=== PATIENT | male | born 1960 | race Caucasian/White ===

== ENCOUNTER 2024-09-15 11:10 | Emergency (ER) | payer MEDICARE, SELFPAY ==
[2024-09-15] VITALS (19 sets, daily range): BP systolic 166; BP diastolic 94; PULSE 59–86; RESP 16; TEMP 36.8; O2SAT 95
--- NOTE | 2024-09-15 11:15 | RT.EKG_ITS ---
APPROVED REPORT Exam: Resting ECG Reason for Exam: Chest Palpatations Patient Location: E HR:79 bpm ECG Measurements Heart Rate 79 AXIS TN 140 P 58 QRSd 98 QRS 74 QT 387 T 57 QTc 444 Conclusion Sinus rhythm...normal P axis, V-rate 60- 99 Probable left atrial enlargement...P >50mS, <-0.10mV V1
--- NOTE | 2024-09-15 11:41 | ED.GENADUL_ITS ---
Discharge Plan Disposition Patient Disposition: Home Condition: Stable Discharge Details Clinical Impression: Chest pain Primary Care Provider: Letty Howard ED Provider: Kody Becerra Discharge Instructions Additional Instructions: Your lab work did not show any concerning findings at this time. I placed you on our follow-up list to try and get established with a primary care provider soon as possible. You should receive a phone call within appointment. If you feel more ill or have new symptoms such as persistent vomiting return to the emergency department for reevaluation. HPI General Mode of arrival: ambulatory . Date/Time Provider Initiated Documentation: 09/15/24 11:31 . Limitations to Documentation: no limitations . Information obtained by: patient . History of Present Illness 63 year old M presents to the emergency department with the chief complaint of anxiety, chest discomfort, described as moderate, Quality is described as aching, and is localized to the chest. Patient reports no radiation. Patient started e xperiencing this day(s) (2) and it has been constant. No relieving factors improve symptom(s), No exacerbating factors reported . Patient notes chest pain; denies fever/chills, nausea/vomiting and shortness of breath. Patient did receive the following treatments prior to arrival, none Related Data Allergies Allergy/AdvReac Type Severity Reaction Status Date / Time iodine Allergy Severe vomiting Verified 09/15/24 11:25 shellfish derived AdvReac Severe Skin Rash Verified 09/15/24 11:27 General Stated Complaint: GenMedical YUE: 3 Review of Systems All systems reviewed & are unremarkable except as noted in HPI and below Constitutional Constitutional: Denies chills, Denies fever(s) and Denies weakness Cardiovascular Cardiovascular: Reports chest pain and Denies dyspnea Respiratory Respiratory: Denies cough and Denies dyspnea Gastrointestinal Gastrointestinal: Denies abdominal pain, Denies nausea and Denies vomiting Neurologic Neurologic: Denies weakness Psychiatric Psychiatric: Reports anxiety Exam Const General: no acute distress and anxious Orientation: alert HENMT Head: normal to inspection Ears: external ears normal General nose exam: external nose normal Mouth: moist mucous membranes Eyes General: appearance normal, both eyes and all related structures Neck Neck: normal visual inspection Resp Effort & Inspection: normal respiratory effort and able to speak in complete sentences Auscultation: clear to auscultation bilaterally Cardio Jugular venous pressure: no JVD Rate: regular rate Heart Sounds: no murmurs GI Palpation: soft and nontender Neuro General: patient alert and patient oriented x3 Extrem General: normal to inspection Psych Mental Status: mental status grossly normal Course Vital Signs Vital signs: Vital Signs Temperature 36.8 C 09/15/24 11:19 Pulse 85 09/15/24 11:19 Respiratory Rate 16 09/15/24 11:19 Blood Pressure 166/94 H 09/15/24 11:19 Pulse Oximetry 95 09/15/24 11:19 Temperature 36.8 C 09/15/24 11:19 Temperature Source Oral 09/15/24 11:19 Pulse 85 09/15/24 11:19 Respiratory Rate 16 09/15/24 11:19 Blood Pressure 166/94 H 09/15/24 11:19 Blood Pressure Position Sitting 09/15/24 11:19 Pulse Oximetry 95 09/15/24 11:19 Oxygen Delivery Method Room Air 09/15/24 11:19 Oxygen Flow Rate 0 09/15/24 11:19 Pain Level 1 09/15/24 11:19 Medical Decision Making 63-year-old male who denies any chronic medical problems though he does not see a provider routinely comes in with several days of intermittent chest discomfort and feeling anxious. He says that he was recently tried to get guardianship of a person has been taking care of the process he was kicked out of his living space and so he was no normal as per patient. Says he feels anxious and also has some mild anterior chest discomfort. He denies any diaphoresis, vomiting, he also notes of mild frontal headache that comes and goes but is not severe. He denies any fevers or chills. He is stable on arrival though does appear anxious. Clear lung sounds, no JVD, no abdominal tenderness, no leg swelling or calf tenderness. Equal peripheral pulses. I suspect his symptoms are related to underlying anxiety but will obtain CBC and CMP and troponins. He has equal peripheral pulses and no tearing back pain so I doubt dissection, no hypoxia or tachycardia or evidence of DVT on exam so I doubt PE. His headache is mild, not thunderclap in description he has no infectious symptoms so I doubt entities such as intracranial hemorrhage or [employer] infection Labs unremarkable, patient feels better after taking oral Ativan. He is stable for discharge AMA to place him on a follow-up list to try to get established with a primary care provider. I offered to place him on a blood pressure medicine as his systolic has been constantly 160 here but he declines at this current time and has medical decision-making capacity. Differential Diagnosis Differential Diagnosis: anxiety, acs Medical Records Medical records reviewed: Yes I reviewed the patient's medical records. Lab Data Lab results reviewed: Yes I reviewed the patient's lab results. ECG Data Attestation: I personally reviewed and interpreted this ECG (s) as follows: Prior ECG tracings: available for review Interpretation: Sinus rhythm, rate of 79, [place] 140, no STEMI [facility] All Active Problems (Updated 09/15/24 @ 14:04 by Kody Becerra MD) Chest pain (Acute) Social History Smoking/Tobacco Use Status: Never Smoking risk assessment performed?: Yes Alcohol Intake: never Drug use: Never Substance use type: does not use Housing: house Do you feel safe at home: Yes Do you feel safe in your relationship?: Yes
[2024-09-15 11:51] LABS: Abs Immature Grans 0.02 10^3/uL (0.0-0.06); HCT 39.1 % (40.0-50.0); HGB 13.5 g/dL (13.5-17.5); Immature Grans % 0.3 %; MCH 29.3 pg (27.0-33.0); MCHC 34.5 % (32.0-36.0); MCV 85 fL (80-95); MPV 8.7 fL (8.0-11.0); Platelet Count 352 10^3/uL (130-400); RBC 4.60 10^6/uL (4.36-5.78); RDW 13.1 % (11.8-14.1); RDW-SD 40.3 fL; WBC 6.92 10^3/uL (4.4-10.8)
[2024-09-15 12:18] LABS: ALT 26 U/L (16-63); AST 17 U/L (15-37); Albumin 4.0 g/dL (3.4-5.0); Alkaline Phosphatase 73 U/L (46-116); Anion Gap 9.9 mmol/L (3-11); BUN 8 mg/dL (7-18); Bilirubin, Total 0.4 mg/dL (0.2-1.0); CO2 26.1 mmol/L (21.0-32.0); Calcium 9.0 mg/dL (8.5-10.1); Chloride 104 mmol/L (98-107); Estimated GFR 99.44 (mL/min/1.73m2); Glucose 113 mg/dL (74-106); Magnesium 2.2 mg/dL (1.8-2.4); Potassium 3.6 mmol/L (3.5-5.1); Sodium 140 mmol/L (136-145); Total Protein 7.5 g/dL (6.4-8.2); Troponin I 5 ng/L (<or=76)
[2024-09-15] MEDS: LORazepam 1 MG TAB PO (12:19)
[2024-09-15 13:24] LABS: Troponin I 5 ng/L (<or=76)
== END 2024-09-15 14:45 | disposition home or self-care (01) ==
PROVIDERS: Emergency Provider Emergency Medicine; PCP Family Medicine
DX: R07.89 Other chest pain (principal); F41.9 Anxiety disorder, unspecified
CPT/HCPCS: 99284 ×2; 80053; 93005; 83735; 84484; 85025; 93010